=== PATIENT | male | born 1965 | race Caucasian/White ===

== ENCOUNTER 2017-10-18 01:52 | Emergency (ER) | payer MEDICAID ==
[~2017-10-18] VITALS: Ht 185.4 cm; Wt 120.0 kg
[2017-10-18] MEDS ORDERED: BACITRACIN ZINC OINT 500U/GM, 0.9 GM ONE (02:12)
[2017-10-18] MEDS ORDERED: LIDOCAINE-MPF 2% ,5ML ONE (02:29)
[2017-10-18] MEDS ORDERED: DIPH,PERTUSS(ACELL),TET VAC/PF 0.5 ML IM-VACC ONE ×2 (02:30)
[2017-10-18] MEDS ORDERED: LIDOCAINE 2%, 20ML SQ ONE (02:30)
[2017-10-18 09:09] VITALS: BP 129/99
== END 2017-10-18 09:29 | disposition home or self-care (01) ==
LOC: ED 08:51
DX: S06.0X0A Concussion without loss of consciousness, initial encounter (principal); S01.111A Laceration without foreign body of right eyelid and periocular area, initial encounter; F10.120 Alcohol abuse with intoxication, uncomplicated; Z79.899 Other long term (current) drug therapy; X58.XXXA Exposure to other specified factors, initial encounter; Y93.89 Activity, other specified; Y92.89 Other specified places as the place of occurrence of the external cause; Y99.8 Other external cause status; Y90.9 Presence of alcohol in blood, level not specified
CPT/HCPCS: 12052; 36415; 70450; 72125; 80307; 90471; 90715; 99285; J3490

== ENCOUNTER 2017-10-18 21:51 | Emergency (ER) | payer MEDICAID ==
[~2017-10-18] VITALS: Ht 94 cm; Wt 100.0 kg
[2017-10-18] MEDS ORDERED: ZIPRASIDONE 20 MG INJ IM ONE ×2 (22:30→22:36)
[2017-10-18] MEDS ORDERED: PLEASE ENTER HEIGHT AND WEIGHT MC SCH (22:30)
[2017-10-19] MEDS ORDERED: ACETAMINOPHEN 500 MG TABLET PO ONE (10:00)
[2017-10-19] MEDS ORDERED: ACETAMINOPHEN 500 MG TABLET ONE (10:21)
[2017-10-19 10:22] LABS: BASOPHILS # (AUTO) 0.06 x10^3/uL (0-0.1); BASOPHILS % (AUTO) 1 % (0-1); EOSINOPHILS % (AUTO) 3 % (1-7); LYMPHOCYTES # (AUTO) 1.08 x10^3/uL (1-3.4); LYMPHOCYTES % (AUTO) 15 % (22-44); MD NO; MEAN CORPUSCULAR HEMOGLOBIN 29.6 pg (27.5-34.5); MEAN CORPUSCULAR HGB CONC 33.9 g/dL (33.2-36.2); MEAN CORPUSCULAR VOLUME 87.4 fL (81-97); MEAN PLATELET VOLUME 7.9 fL (7.4-10.4); MONOCYTES % (AUTO) 10 % (2-9); NEUTROPHILS # (AUTO) 5.09 x10^3/uL (1.8-6.8); NEUTROPHILS % (AUTO) 71 % (42-75); PLATELET COUNT 408 x10^3/uL (130-400); RED CELL DISTRIBUTION WIDTH 15.1 % (9.4-14.8)
[2017-10-19 10:31] LABS: ALBUMIN 3.7 g/dL (3.4-5.0); ANION GAP 8 mmol/L (5-15); CALCIUM 8.5 mg/dL (8.5-10.1); CHLORIDE 104 mmol/L (98-107)
[2017-10-19 10:34] LABS: ALANINE AMINOTRANSFERASE 33 U/L (12-78); ALKALINE PHOSPHATASE 86 U/L (45-117); BILIRUBIN,TOTAL 0.4 mg/dL (0.2-1.0); CREATININE 0.77 mg/dL (0.7-1.3); TOTAL PROTEIN 8.3 g/dL (6.4-8.2)
[2017-10-19 11:57] VITALS: BP 151/98
[2017-10-19] MEDS ORDERED: CHLORDIAZEPOXIDE 10 MG CAPSULE ONE (12:28)
[2017-10-19] MEDS ORDERED: CHLORDIAZEPOXIDE 10 MG CAPSULE PO PRN (12:30)
== END 2017-10-19 12:37 | disposition home or self-care (01) ==
LOC: ED 22:35 → EDIP 10-19 11:24 → UNDOADMOB 10-19 11:24 → ED 10-19 12:37
DX: G92 Toxic encephalopathy (principal); F10.229 Alcohol dependence with intoxication, unspecified; Z72.9 Problem related to lifestyle, unspecified; Z75.9 Unspecified problem related to medical facilities and other health care; Z79.899 Other long term (current) drug therapy; Y90.9 Presence of alcohol in blood, level not specified
CPT/HCPCS: 36415; 70450; 80053; 80307; 85025; 96372; 99285; J3486